=== PATIENT | male | born 1950 | race Caucasian/White ===

== ENCOUNTER 2018-01-05 02:17 | Inpatient (IN) ==
--- NOTE | 2018-01-05 03:27 | CT ---
EXAM DATE: 01/05/2018 2:53 AM EST AGE/SEX: 89 years / Male INDICATIONS: Altered mental status. CLINICAL DATA: This is the patient's initial encounter. Patient reports that signs and symptoms have been present for 1 day and indicates a pain score of Nonresponsive. MEDICAL/SURGICAL HISTORY: None. None. RADIATION DOSE: 56.35 CTDI (mGy) COMPARISON: No prior exams available for comparison. TECHNIQUE: CT of the head without contrast. Using automated exposure control and adjustment of the mA and/or kV according to patient size, radiation dose was kept as low as reasonably achievable to ob tain optimal diagnostic quality images. DICOM format image data is available electronically for revi ew and comparison. FINDINGS: Cerebrum: The ventricles are normal for age. No evidence of midline shift, mass lesion, hemorrhage or acute infarction. No extraaxial fluid collections are seen. Posterior Fossa: The cerebellum and brainstem are intact. The 4th ventricle is midline. The cerebe llopontine angle is unremarkable. Extracranial: The visualized portion of the orbits is intact. Skull: The calvaria is intact. No evidence of skull fracture. CONCLUSION: 1. No acute findings. Remote lacunar infarcts in the basal ganglia and right marian. . Electronically signed by: Tor Gorman MD 01/05/2018 3:25 AM EST
--- NOTE | 2018-01-05 03:28 | XR ---
EXAM DATE: 01/05/2018 3:04 AM EST AGE/SEX: 89 years / Male INDICATIONS: Shortness of breath CLINICAL DATA: This is the patient's initial encounter. Patient reports that signs and symptoms have been present for 1 day and indicates a pain score of Nonresponsive. MEDICAL/SURGICAL HISTORY: None. None. COMPARISON: No prior exams available for comparison. FINDINGS: Pacer leads in right atrium and right ventricle. Mildly tortuous aorta. No consolidation or. No pneum othorax. CONCLUSION: Pacer leads in right atrium and right ventricle. No acute findings. Electronically signed by: Tor Gorman MD 01/05/2018 3:26 AM EST
[2018-01-05 03:41] LABS: Baso # (Auto) 0.1 th/mm3 (0.0-0.2); Baso % (Auto) 1.1 % (0.0-2.0); Eos # (Auto) 0.1 th/mm3 (0.0-0.4); Hematocrit 42.8 % (39.0-51.0); Hemoglobin 14.6 gm/dL (13.0-17.0); Lymph # (Auto) 1.2 th/mm3 (1.0-4.8); Lymph % (Auto) 16.8 % (9.0-44.0); Mean Corpuscular Hemoglobin 32.2 pg (27.0-34.0); Mean Corpuscular Volume 94.5 fL (80.0-100.0); Mean Platelet Volume 8.4 fL (7.0-11.0); Mono # (Auto) 0.5 th/mm3 (0.0-0.9); Mono % (Auto) 7.5 % (0.0-8.0); Neut # (Auto) 5.4 th/mm3 (1.8-7.7); Neut % (Auto) 73.6 % (16.0-70.0); Platelet Count 207 th/mm3 (150-450); Red Blood Count 4.53 mil/mm3 (4.50-5.90); Red Cell Distribution Width 14.3 % (11.6-17.2); White Blood Count 7.3 th/mm3 (4.0-11.0)
[2018-01-05 03:49] LABS: Bilirubin,Urine Negative (Negative); Clarity,Urine Clear (Clear); Color,Urine Straw (Yellw/Straw); Glucose,Urine (UA) Negative (Negative); Leukocyte Esterase,Urine Negative (Negative); Mucus,Urine Few /lpf (Occasional); Nitrite,Urine Negative (Negative); Specific Gravity,Urine 1.005 (1.002-1.035); Squamous Epithelial Cell,Urine <1 /hpf (0-5)
[2018-01-05 03:52] LABS: Activated Partial Thrombo Time 24.3 sec (23.4-31.7); INR 1.1 Ratio
[2018-01-05 03:57] LABS: Alanine Aminotransferase 16 U/L (12-78); Albumin 3.6 g/dL (3.4-5.0); Anion Gap 9 meq/L (5-15); Aspartate Aminotransferase 15 U/L (15-37); Blood Urea Nitrogen 13 mg/dL (7-18); Calcium 9.1 mg/dL (8.5-10.1); Carbon Dioxide 28.5 meq/L (21.0-32.0); Chloride 104 meq/L (98-107); Glomerular Filtration Rate 86 mL/min (>89); Glucose,Random 104 mg/dL (74-106); Magnesium 2.1 mg/dL (1.5-2.5); Potassium 3.6 meq/L (3.5-5.1); Sodium 141 meq/L (136-145)
[2018-01-05 04:02] LABS: Alkaline Phosphatase 91 U/L (45-117); Creatine Kinase 102 U/L (39-308); Total Protein 6.9 g/dL (6.4-8.2)
--- NOTE | 2018-01-05 04:15 | ED ---
HPI General Chief complaint: Medical Clearance Stated complaint: mental status Time Seen by Provider: 01/05/18 02:28 Source: EMS Mode of arrival: EMS Limitations: altered mental status History of Present Illness HPI narrative: Patient is an older gentleman brought in by EMS due to altered mental status. Per EMS, patient was in a small apartment with several other adults. The other people in the apartment called 911 because he was not acting right. Per EMS, no one knew much about him. They said that he takes a lot of medications, but did not know what they were. Patient is a and may have just moved here from [place] per reports, however virtually nothing is known about this person. He mumbles, but does not say anything that is able to be understood. He is unable to provide any history. Related Data Home Medications Medication Instructions Recorded Confirmed Unable to Obtain Home Meds 01/05/18 01/05/18 Allergies Allergy/AdvReac Type Severity Reaction Status Date / Time No Allergy Information Allergy Unverified 01/05/18 02:46 Available Review of Systems ROS Unobtainable ROS Unobtainable: unobtainable due to mental status PMFSH Medical History Medical History Medical history unknown (Acute) Surgical history unknown (Acute) Social History Social History Substance History: Unable to Obtain Smoking Status: Unknown if ever smoked How Often Do You Have a Drink Containing Alcohol: Unable to Obtain Recent Travel in [facility] within the Last 8 Weeks: No Recent Out of Country Travel within the Last 8 Weeks: No Immunization History Tetanus Immunization: Unable to Assess Exam Narrative Exam Narrative: GENERAL: Awake and alert, appears to try to speak to you, however it is impossible to understand him. SKIN: Focused skin assessment warm/dry. HEAD: Atraumatic. Normocephalic. EYES: Pupils equal and round and reactive. No scleral icterus. Extraocular movements intact. ENT: Mucous membranes pink and moist. NECK: Trachea midline. No JVD. CARDIOVASCULAR: Regular rate and rhythm. No murmur appreciated. RESPIRATORY: No accessory muscle use. Clear to auscultation. Breath sounds equal bilaterally. GASTROINTESTINAL: Abdomen soft, non-tender, nondistended. MUSCULOSKELETAL: No obvious deformities. No clubbing. No cyanosis. No edema. NEUROLOGICAL: Awake and alert. No obvious cranial nerve deficits. Motor grossly within normal limits. Mumbled speech Course Initial Documented Vital Signs Temperature 97.6 F 01/05/18 02:36 Pulse Rate 71 01/05/18 02:36 Respiratory Rate 18 01/05/18 02:36 Blood Pressure 185/94 H 01/05/18 02:36 Pulse Oximetry 97 01/05/18 02:36 Last Documented Vital Signs Temperature 97.6 F 01/05/18 02:36 Pulse Rate 75 01/05/18 03:40 Respiratory Rate 16 01/05/18 03:40 Blood Pressure 157/80 H 01/05/18 03:40 Pulse Oximetry 97 01/05/18 02:42 Medical Decision Making MDM Narrative Medical decision making narrative: Patient is an elderly male brought in by EMS due to concerns for altered mental status. Patient is unable to provide any history and various little is known about this man. There is no focal weakness or focal abnormalities on exam, however patient does not speak clearly. IV established, labs sent. Labs show no acute abnormalities. CT head performed shows no acute abnormalities. It is unclear what this patient's baseline is or what his medical history is. It is assumed that he is currently altered and will require admission. Medical Screen Exam Complete: Yes Emergency Medical Condition: Yes Differential Diagnosis Differential Diagnosis: Electrolyte abnormality versus infection versus CVA versus dehydration versus dementia Lab Data Lab results reviewed: Yes I reviewed the patient's lab results. Result diagrams: 01/05/18 03:25 01/05/18 03:25 Lab Results 01/05/18 01/05/18 01/05/18 Range/Units 03:20 03:25 03:25 WBC 7.3 (4.0-11.0) th/mm3 RBC 4.53 (4.50-5.90) mil/mm3 Hgb 14.6 (13.0-17.0) gm/dL Hct 42.8 (39.0-51.0) % MCV 94.5 (80.0-100.0) fL MCH 32.2 (27.0-34.0) pg MCHC 34.0 (32.0-36.0) % RDW 14.3 (11.6-17.2) % Plt Count 207 (150-450) th/mm3 MPV 8.4 (7.0-11.0) fL Neut % (Auto) 73.6 H (16.0-70.0) % Lymph % (Auto) 16.8 (9.0-44.0) % Stephens % (Auto) 7.5 (0.0-8.0) % Eos % (Auto) 1.0 (0.0-4.0) % Baso % (Auto) 1.1 (0.0-2.0) % Neut # (Auto) 5.4 (1.8-7.7) th/mm3 Lymph # (Auto) 1.2 (1.0-4.8) th/mm3 Stephens # (Auto) 0.5 (0.0-0.9) th/mm3 Eos # (Auto) 0.1 (0.0-0.4) th/mm3 Baso # (Auto) 0.1 (0.0-0.2) th/mm3 WBC Differential . Differential Comment Auto diff final PT 11.0 (9.8-11.6) sec INR 1.1 Ratio APTT 24.3 (23.4-31.7) sec Sodium (136-145) meq/L Potassium (3.5-5.1) meq/L Chloride (98-107) meq/L Carbon Dioxide (21.0-32.0) meq/L Anion Gap (5-15) meq/L BUN (7-18) mg/dL Creatinine (0.60-1.30) mg/dL Estimated GFR (>89) mL/min Random Glucose (74-106) mg/dL Calcium (8.5-10.1) mg/dL Magnesium (1.5-2.5) mg/dL Total Bilirubin (0.2-1.0) mg/dL AST (15-37) U/L ALT (12-78) U/L Alkaline Phosphatase (45-117) U/L Ammonia (11-32) mcmol/L Total Creatine Kinase (39-308) U/L Troponin I (0.02-0.05) ng/mL Total Protein (6.4-8.2) g/dL Albumin (3.4-5.0) g/dL Urine Color Straw (Yellw/Straw) Urine Clarity Clear (Clear) Urine pH 6.0 (5.0-8.5) Ur Specific Witt 1.005 (1.002-1.035) Urine Protein Negative (Neg-Trace) mg/dL Urine Glucose (UA) Negative (Negative) mg/dL Urine Ketones Negative (Negative) mg/dL Urine Occult Blood Negative (Negative) Urine Nitrate Negative (Negative) Urine Bilirubin Negative (Negative) Urine Urobilinogen Less than 2 (Less than 2) mg/dL Ur Leukocyte Esterase Negative (Negative) Urine RBC Less than 1 (0-3) /hpf Urine WBC Less than 1 (0-5) /hpf Ur Squamous Epith Cells <1 (0-5) /hpf Urine Mucus Few H (Occasional) /lpf Micro UA Comment Cath-culture not ind Ur Microscopic Review Not Reportable Urine Culture Comments Cath-cult not ind 01/05/18 01/05/18 Range/Units 03:25 03:25 WBC (4.0-11.0) th/mm3 RBC (4.50-5.90) mil/mm3 Hgb (13.0-17.0) gm/dL Hct (39.0-51.0) % MCV (80.0-100.0) fL MCH (27.0-34.0) pg MCHC (32.0-36.0) % RDW (11.6-17.2) % Plt Count (150-450) th/mm3 MPV (7.0-11.0) fL Neut % (Auto) (16.0-70.0) % Lymph % (Auto) (9.0-44.0) % Stephens % (Auto) (0.0-8.0) % Eos % (Auto) (0.0-4.0) % Baso % (Auto) (0.0-2.0) % Neut # (Auto) (1.8-7.7) th/mm3 Lymph # (Auto) (1.0-4.8) th/mm3 Stephens # (Auto) (0.0-0.9) th/mm3 Eos # (Auto) (0.0-0.4) th/mm3 Baso # (Auto) (0.0-0.2) th/mm3 WBC Differential Differential Comment PT (9.8-11.6) sec INR Ratio APTT (23.4-31.7) sec Sodium 141 (136-145) meq/L Potassium 3.6 (3.5-5.1) meq/L Chloride 104 (98-107) meq/L Carbon Dioxide 28.5 (21.0-32.0) meq/L Anion Gap 9 (5-15) meq/L BUN 13 (7-18) mg/dL Creatinine 0.78 (0.60-1.30) mg/dL Estimated GFR 86 L (>89) mL/min Random Glucose 104 (74-106) mg/dL Calcium 9.1 (8.5-10.1) mg/dL Magnesium 2.1 (1.5-2.5) mg/dL Total Bilirubin 0.4 (0.2-1.0) mg/dL AST 15 (15-37) U/L ALT 16 (12-78) U/L Alkaline Phosphatase 91 (45-117) U/L Ammonia Less than 10 L (11-32) mcmol/L Total Creatine Kinase 102 (39-308) U/L Troponin I Less than 0.02 L (0.02-0.05) ng/mL Total Protein 6.9 (6.4-8.2) g/dL Albumin 3.6 (3.4-5.0) g/dL Urine Color (Yellw/Straw) Urine Clarity (Clear) Urine pH (5.0-8.5) Ur Specific Witt (1.002-1.035) Urine Protein (Neg-Trace) mg/dL Urine Glucose (UA) (Negative) mg/dL Urine Ketones (Negative) mg/dL Urine Occult Blood (Negative) Urine Nitrate (Negative) Urine Bilirubin (Negative) Urine Urobilinogen (Less than 2) mg/dL Ur Leukocyte Esterase (Negative) Urine RBC (0-3) /hpf Urine WBC (0-5) /hpf Ur Squamous Epith Cells (0-5) /hpf Urine Mucus (Occasional) /lpf Micro UA Comment Ur Microscopic Review Urine Culture Comments Imaging Data Radiologist's impression: Chest X-Ray 01/05/18 02:28 CONCLUSION: Pacer leads in right atrium and right ventricle. No acute findings. Head CT 01/05/18 02:28 CONCLUSION: 1. No acute findings. Remote lacunar infarcts in the basal ganglia and right marian. . Discharge Plan Discharge Disposition Patient Disposition: 30 Still Patient Discharge Condition Condition: Stable Discharge Details Diagnosis: Altered mental status Physicians Team ED Provider: Geovanna Awad Primary Care Provider: Primary Care Ivette Kevin Rxs /Orders / Referrals /Forms Prescriptions: No Action Unable to Obtain Home Meds RF: 0 Status ED Status: With Doctor
[2018-01-05] MEDS ORDERED: Acetaminophen 325 MG Tablet PO PRN (05:02)
[2018-01-05] MEDS ORDERED: Bisacodyl 10 MG Supp RECTAL PRN (05:02)
[2018-01-05 06:22] LABS: Amphetamine Screen,Urine Neg (Neg); Barbiturate Screen,Urine Neg (Neg); Cannabinoid Screen,Urine Neg (Neg); Cocaine Screen,Urine Neg (Neg)
[2018-01-05 06:24] LABS: Opiate Screen,Urine Neg (Neg)
[2018-01-05] MEDS: Senna/Docusate Sodium 8.6/50 MG Tablet PO SCH ×2 (10:28→20:38)
--- NOTE | 2018-01-05 11:32 | ECG ---
Date Performed: 01/05/2018 Time Performed: 04:24:19 PTAGE: 89 years EKG: Sinus rhythm NONSPECIFIC T-WAVE ABNORMALITY BORDERLINE ECG NO PREVIOUS TRACING DOCTOR: Ricky Lord Interpretating Date/Time 01/05/2018 11:29:07
[2018-01-05] MEDS ORDERED: Dextrose 50% in Water 50 ML Vial IV.PUSH PRN (12:23)
--- NOTE | 2018-01-05 12:23 | P.HPIM ---
History of Present Illness Primary Care Physician: No Primary Care Physician Chief Complaint: I am having a hard time expressing myself History of Present Illness: This is a 67-year-old white male who was initially brought in by EMS due to altered mental status and found in a small apartment with several other adults and register under a Joesph Carr. Apparently from the emergency room physicians dictation, the friends were worried about his changes in mental status. While he was in the emergency room apparently no history could be gathered from him and he was mumbling incoherent words. This morning, patient is more awake and alert and displays some expressive aphasia which he tells me has worsened over the past 4 weeks. He tells me that he usually ambulates with a walker and has no complaints of new headache, visual changes, nor any focalized weakness or numbness. He states that his brother in [place] wanted him to be placed in a fdc in which he refused and therefore moved down to [place] to live with his friends. He states that his confusion has been getting worse for the past 4 weeks as well with memory problems to the point where he is not taking any of his medications. The only past medical history he can remember is high blood pressure and previous history of stroke. He does not recall why he had a pacemaker done. At this time, he cannot tell me his brother's phone number or address. He is unable to tell me his current home address where he staying with his friends. He was able to tell the nurse this morning his name is Stevie Byrd with a birthdate of 1950. He is not able to tell me what medications he supposed to be taking. He reports he is allergic to previous medication but cannot remember the name of them. Inpatient Certification Inpatient Certification: I certify that the inpatient services were ordered in accordance with Medicare regulations governing the order. This includes certification that hospital inpatient services are reasonable and necessary and in the case of services not specified as inpatient-only under 42 CFR 419.22(n), that they are appropriately provided as inpatient services in accordance to with the 2-midnight benchmark under 43 CFR 412.3(e) Estimated Total Length of Stay (Days): 3 Plans for Post Hospital Care: Not yet determined Review of Systems Constitutional: Reports as per HPI and Denies headache(s) Eyes: Denies blurry vision, Denies change in vision and Denies eye pain Ears, Nose, Mouth, and Throat: Denies abnormal hearing, Denies headache(s), Denies mouth pain, Denies nasal congestion, Denies neck pain and Denies sore throat Cardiovascular: Denies chest pain, Denies pedal edema, Denies palpitations and Denies dyspnea Respiratory: Denies cough and Denies dyspnea Gastrointestinal: Denies abdominal pain, Denies constipation, Denies loose stools, Denies nausea and Denies vomiting Musculoskeletal: Denies back pain, Denies myalgias, Denies arthralgias, Denies neck pain and Denies numbness Skin/Breast: Denies new lesions and Denies rash Neurologic: Denies abnormal hearing, Reports abnormal speech (Difficulty expressing himself for the past 4 weeks), Reports abnormal gait (Uses a walker chronically), Reports confusion, Denies headache(s), Denies focal weakness, Reports memory loss, Denies numbness, Denies seizure-like activity and Denies tremor(s) Psychiatric: Denies anxiety, Denies depression and Denies memory loss Endocrine: Denies cold intolerance, Denies heat intolerance and Denies palpitations Hematologic/Lymphatic: Denies easy bleeding and Denies easy bruising PMFSH Medical History Medical History Medical history unknown (Acute) Surgical history unknown (Acute) CVA (cerebral vascular accident) (Chronic) Hypertension (Chronic) Surgical History Surgical History Pacemaker (Chronic) Family History Family History Mother Heart disease Father Heart disease Social History Social History Substance History: No History of Abuse Second Hand Smoke Exposure: No Smoking Status: Former smoker Tobacco Type: Cigarettes How Often Do You Have a Drink Containing Alcohol: Never Hx Recent Travel: Yes (moved from [place] down to [place]) Recent Travel in [facility] within the Last 8 Weeks: Yes Recent Out of Country Travel within the Last 8 Weeks: No Immunization History Tetanus Immunization: Unable to Assess Hx Influenza Vaccine This Season: Yes Medications and Allergies Allergies Allergy/AdvReac Type Severity Reaction Status Date / Time No Known Allergies Allergy Verified 01/05/18 05:46 Home Medications Medication Instructions Recorded Confirmed Type Unable to Obtain Home Meds 01/05/18 01/05/18 History Active Medications: Active Medications Acetaminophen (Tylenol) 650 mg PO Q4H PRN PRN Reason: Temp > 100.4 Al Hydroxide/Mg Hydroxide (Milk Of Magnesia Liq) 30 ml PO Q12H PRN PRN Reason: Mild Constipation Bisacodyl (Dulcolax Supp) 10 mg RECTAL DAILY PRN PRN Reason: SEVERE CONSITIPATION Lactulose (Lactulose Liq) 30 ml PO DAILY PRN PRN Reason: SEVERE CONSITIPATION Ondansetron HCl (Zofran Inj) 4 mg IV.PUSH Q6H PRN PRN Reason: NAUSEA OR VOMITING Senna/Docusate Sodium (Helen-Colace) 1 tab PO BID DIXIE Sennosides (Senokot) 17.2 mg PO Q12H PRN PRN Reason: Moderate Constipation Sodium Chloride (Ns Flush) 2 ml IV.FLUSH BID DIXIE Sodium Chloride (Ns Flush) 2 ml IV.FLUSH PRN PRN PRN Reason: FLUSH AFTER USING IV ACCESS Physical Exam Vital signs: Last Vital Signs Temp 97.9 F 01/05/18 11:43 Pulse 61 01/05/18 11:43 Resp 18 01/05/18 11:43 BP 147/81 H 01/05/18 11:43 Pulse Ox 98 01/05/18 11:43 Intake & Output 01/03/18 01/04/18 01/05/18 01/06/18 06:59 06:59 06:59 06:59 Weight 63.503 kg 63.5 kg Narrative: GENERAL: This is a thin white male in no acute distress lying in bed. SKIN: Warm and dry. Left chest wall with pacemaker indentation HEAD: Atraumatic. Normocephalic. EYES: Pupils equal and round. No scleral icterus. No injection or drainage. ENT: No nasal bleeding or discharge. Mucous membranes pink and moist. NECK: Trachea midline. No JVD. CARDIOVASCULAR: Regular rate and rhythm. RESPIRATORY: No accessory muscle use. Clear to auscultation. Breath sounds equal bilaterally. GASTROINTESTINAL: Abdomen soft, non-tender, nondistended. Hepatic and splenic margins not palpable. Normoactive bowel sounds MUSCULOSKELETAL: Extremities without clubbing, cyanosis, or edema. No obvious deformities. NEUROLOGICAL: Awake and alert to person, place, not to time or situation. No obvious cranial nerve deficits. Motor grossly within normal limits. Five out of 5 muscle strength in the arms and legs. Abnormal speech with signs of expressive aphasia. Memory is not intact, wide stance gait PSYCHIATRIC: Appropriate mood and affect; insight and judgment normal. Results Labs CBC & Chem 7: 01/05/18 03:25 01/05/18 03:25 Imaging Impressions Chest X-Ray 01/05/18 02:28 CONCLUSION: Pacer leads in right atrium and right ventricle. No acute findings. Head CT 01/05/18 02:28 CONCLUSION: 1. No acute findings. Remote lacunar infarcts in the basal ganglia and right marian. . ECG Prior ECG tracings: not available for review Interpretation: Normal sinus rhythm Caprini VTE Risk Assessment Caprini VTE Risk Assessment: Moderate/High Risk (score >= 2) Caprini Risk Assessment Model: Point Value = 1 Point Value = 2 Point Value = 3 Point Value = 5 Age 41-60 Minor surgery BMI > 25 kg/m2 Swollen legs Varicose veins or History of unexplained or recurrent spontaneous Oral contraceptives or hormone replacement Sepsis (< 1 month) Serious lung disease, including pneumonia (< 1 month) Abnormal pulmonary function Acute myocardial infarction Congestive heart failure (< 1 month) History of inflammatory bowel disease Medical patient at bed rest Age 61-74 Arthroscopic surgery Major open surgery (> 45 min) Laparoscopic surgery (> 45 min) Malignancy Confined to bed (> 72 hours) Immobilizing plaster cast Central venous access Age >= 75 History of VTE Family history of VTE Factor V Leiden Prothrombin [id number] Lupus anticoagulant Anticardiolipin antibodies Elevated serum homocysteine Heparin-induced thrombocytopenia Other congenital or acquired thrombophilia Stroke (< 1 month) Elective arthroplasty Hip, pelvis, or leg fracture Acute spinal cord injury (< 1 month) Prophylaxis Regimen: Total Risk Factor Score Risk Level Prophylaxis Regimen 0-1 Low Early ambulation 2 Moderate Order ONE of the following: *Sequential Compression Device (SCD) *Heparin 5000 units SQ BID 3-4 Higher Order ONE of the following medications: *Heparin 5000 units SQ TID *Enoxaparin/Lovenox 40 mg SQ daily (WT < 150 kg, CrCl > 30 mL/min) *Enoxaparin/Lovenox 30 mg SQ daily (WT < 150 kg, CrCl > 10-29 mL/min) *Enoxaparin/Lovenox 30 mg SQ BID (WT < 150 kg, CrCl > 30 mL/min) AND/OR *Sequential Compression Device (SCD) 5 or more Highest Order ONE of the following medications: *Heparin 5000 units SQ TID (Preferred with Epidurals) *Enoxaparin/Lovenox 40 mg SQ daily (WT < 150 kg, CrCl > 30 mL/min) *Enoxaparin/Lovenox 30 mg SQ daily (WT < 150 kg, CrCl > 10-29 mL/min) *Enoxaparin/Lovenox 30 mg SQ BID (WT < 150 kg, CrCl > 30 mL/min) AND *Sequential Compression Device (SCD) Assessment and Plan Plan 67-year-old white male with a previous history of hypertension and CVA brought in by EMS due to altered mental status 1. Acute encephalopathy of questionable etiology? TIA versus subacute CVA with associated expressive aphasia- CT head shows no acute findings with remote lacunar infarcts in the basal ganglia and right marian We will obtain neurology consultation for further evaluation and workup. Unknown if we are able to get an MRI for further evaluation due to history of a pacemaker. Start aspirin, check 2D echo and carotid ultrasound Speech therapy consult for expressive aphasia PT OT consult Check hemoglobin A1c and fasting lipid profile Ammonia level and urine tox screen were within normal limits Continue neurochecks every 4 2. Hypertension, chronic essential -initiate Norvasc. 3. DVT prophylaxisLovenox H&P: Quality VTE Deep Vein Thrombosis/Pulmonary Embolism Present on Admission: No
[2018-01-05] MEDS ORDERED: amLODIPine 5 MG Tablet PO SCH (12:30)
[2018-01-05] MEDS: Enoxaparin Inj 40 MG/0.4 ML Syringe SQ SCH (13:20)
--- NOTE | 2018-01-05 14:24 | US ---
EXAM DATE: 01/05/2018 2:20 PM EST AGE/SEX: 89 years / Male INDICATIONS: Altered mental status. CLINICAL DATA: This is the patient's initial encounter. Patient reports that signs and symptoms have been present for 1 day and indicates a pain score of 0/10. MEDICAL/SURGICAL HISTORY: Hypertension. CVA. Pacemaker. . Surgical history unknown. COMPARISON: No prior exams available for comparison. VELOCITY PARAMETERS: ICA/CCA Ratio: Right N/A , Left 1.49 ICA: Right NO FLOW cm/sec, Left 97 cm/sec CCA: Right 60 cm/sec, Left 65 cm/sec ECA: Right 92 cm/sec, Left 55 cm/sec Vertebral: Right NO FLOW cm/sec absent, Left 55 cm/sec antegrade FINDINGS: Right Carotid: No flow is identified within the right internal carotid circulation. Left Carotid: Mild arteriosclerotic plaque is visualized. The waveforms are within normal limits. Other: None. CONCLUSION: 1. Right Internal Carotid Artery: No flow identified. The right internal carotid appears completely occluded. 2. Left Internal Carotid Artery: Moderate atherosclerotic plaquing. Exam would suggest mild stenosis (less than 50%) by NASCET criteria 3. No flow identified within the right vertebral. Electronically signed by: Pillo Pereyra MD 01/05/2018 2:23 PM EST
[2018-01-05] MEDS: Insulin NovoLOG Aspart Correctional Sugar Inj SQ SCH ×2 (17:59→20:38)
--- NOTE | 2018-01-05 22:37 | MB ---
cc: Ricky Rios MD DATE: 01/05/2018 HISTORY OF PRESENT ILLNESS: He is a 66-year-old man, right-handed, with hypertension, hypercholesterolemia. He tells me he has had a myocardial infarction. He has a pacemaker. He says he has had liver problems, hepatitis in the past. He does drink beer apparently every day and is a smoker. He was evidently up in [place] and his brother want to put him in a residential. He had some friends who were driving down to [place], so he drove down here with them about a month ago and has been staying with some friends. Apparently he does not remember how he got to the hospital. He was evidently at a small apartment with several other adults. He was not acting right, so they called 911. Nobody knew much about him. Says he takes a lot of medications, but they did not know what they were. He is a . He was not saying anything that could be understood. He was awake and alert in the ER with mumbling speech. CAT scan of the brain showed an old right pontine and old right periventricular infarct. Some atrophy and white matter changes were noted. REVIEW OF SYSTEMS: He denies any diabetes, a fib, Coumadin, CABG, renal or pulmonary disease, thyroid disease, lupus, ulcer, cancer, seizure, stroke. SOCIAL HISTORY: He is a smoker and a drinker, lives in that apartment, previously up in [place]. FAMILY HISTORY: Negative for cancer, seizure or stroke, according to the patient. MEDICATIONS: Unable to obtain. He is now on: 1. Amlodipine. 2. Aspirin 81. 3. Lipitor. 4. Enalapril. 5. Lovenox 40 a day. 6. Zofran. PHYSICAL EXAMINATION: VITAL SIGNS: Afebrile, heart rate 67, respirations 19, blood pressure 114/71; 185/94 when he first came in. There were no carotid bruits. HEART: Regular rate and rhythm. No rub or murmur. He has a pacemaker. NEUROLOGIC: Pupils are equal. Visual gonzales are full. Extraocular movements intact without nystagmus. Face is symmetric with normal sensation. Tongue midline. No drift. Normal strength in upper and lower extremities bilaterally. DTRs are hyperreflexive on the left knee jerk compared to the right. Toes downgoing bilaterally. Pinprick is intact throughout. He is not ataxic on [id number]. Gait: He tends to walk and shuffle, take small steps and hold his arms out, posturing his arms out sideways, both of them. LABORATORY DATA: CBC is normal. Urine drug screen negative. Alcohol level negative. UA negative. Basic metabolic profile, ammonia, troponin, CPK, albumin all normal. Coags were normal. CAT scan of the brain is noted. Carotid ultrasound: Right internal carotid artery is completely occluded. Mild stenosis on the left, less than 50%. 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 Old right pontine small infarct. I would recommend keeping him on the aspirin. We will check his LDL cholesterol, B12, thyroid, some other blood work. He appears to have some dementia. He does know the month of the year, but when I told him the month and year, he remembered the month, but not the year. He has also had some shuffling gait. We will try him on a little bit of Sinemet. I may put him on some memory medicines in the future. This is likely going to be a social case about placement. We will also check an echocardiogram on him, with a history of stroke, and an EEG. I note his EKG was sinus rhythm. Will also check a standing blood pressure. MD ALFRED Batista/julia , 09:35 PM , 09:44 PM
--- NOTE | 2018-01-06 06:31 | P.PNNEU ---
Subjective Subjective Comments: did not sleep well with nausea after sinemet Active Medications: Active Medications Acetaminophen (Tylenol) 650 mg PO Q4H PRN PRN Reason: Temp > 100.4 Al Hydroxide/Mg Hydroxide (Milk Of Magnesia Liq) 30 ml PO Q12H PRN PRN Reason: Mild Constipation Amlodipine Besylate (Norvasc) 5 mg PO DAILY [facility] Last Admin: 01/05/18 13:20 Dose: 5 mg Aspirin (Aspirin Chew) 81 mg PO DAILY [facility] Last Admin: 01/05/18 13:20 Dose: 81 mg Atorvastatin Calcium (Lipitor) 10 mg PO HS [facility] Last Admin: 01/05/18 20:38 Dose: 10 mg Bisacodyl (Dulcolax Supp) 10 mg RECTAL DAILY PRN PRN Reason: SEVERE CONSITIPATION Dextrose (D50w Vial) 50 ml IV.PUSH UNSCH PRN PRN Reason: PER HYPOGLYCEMIA PROTOCOL Enalaprilat (Vasotec Inj) 1.25 mg IV.PUSH Q4H PRN PRN Reason: For SBP > 220 or DBP > 120 Enoxaparin Sodium (Lovenox Inj) 40 mg SQ Q24H [facility] Last Admin: 01/05/18 13:20 Dose: 40 mg Glucagon (Glucagon Inj) 1 mg OTHER UNSCH PRN PRN Reason: for Hypoglycemia Protocol Insulin Aspart (Novolog Insulin Correctional Sugar Inj) 0 unit SQ [facility]; Protocol Last Admin: 01/05/18 20:38 Dose: Not Given Lactulose (Lactulose Liq) 30 ml PO DAILY PRN PRN Reason: SEVERE CONSITIPATION Memantine (Namenda) 5 mg PO DAILY [facility] Ondansetron HCl (Zofran Inj) 4 mg IV.PUSH Q6H PRN PRN Reason: NAUSEA OR VOMITING Senna/Docusate Sodium (Helen-Colace) 1 tab PO BID [facility] Last Admin: 01/05/18 20:38 Dose: 1 tab Sennosides (Senokot) 17.2 mg PO Q12H PRN PRN Reason: Moderate Constipation Sodium Chloride (Ns Flush) 2 ml IV.FLUSH BID [facility] Last Admin: 01/05/18 22:29 Dose: 2 ml Sodium Chloride (Ns Flush) 2 ml IV.FLUSH PRN PRN PRN Reason: FLUSH AFTER USING IV ACCESS Allergies/Adverse Reactions: Allergies Allergy/AdvReac Type Severity Reaction Status Date / Time No Known Allergies Allergy Verified 01/05/18 05:46 Physical Exam Vital signs: Vital Signs 01/05/18 08:00 01/05/18 11:43 01/05/18 15:56 Temperature 98.3 F 97.9 F 98.3 F Pulse Rate 63 61 59 L Respiratory Rate 17 18 18 Blood Pressure 131/68 147/81 H 137/75 Pulse Oximetry 95 98 97 01/05/18 20:00 01/05/18 20:29 01/06/18 00:00 Temperature 98.3 F Pulse Rate 78 75 Respiratory Rate 19 Blood Pressure 114/71 Pulse Oximetry 97 95 01/06/18 00:15 01/06/18 03:45 01/06/18 04:00 Temperature 97.5 F L 98.0 F Pulse Rate 81 76 78 Respiratory Rate 18 18 Blood Pressure 120/73 150/81 H Pulse Oximetry 95 97 Intake & Output 01/05/18 01/05/18 01/06/18 06:59 18:59 06:59 Intake Total 480 / 480 520 / 520 Balance 480 / 480 520 / 520 Weight 63.503 kg 63.5 kg 63.5 kg Intake: Oral 480 / 480 520 / 520 Other: # Voids 2 2 Weight On Admission 63.5 kg Narrative: awake alert moves all well mo not yr knows [facility] Objective Laboratory Results - last 24 hr 01/05/18 01/05/18 01/05/18 03:25 17:06 21:59 POC Glucose 99 106 Triglycerides Cholesterol IgA 163 01/06/18 05:26 POC Glucose Triglycerides 94 Cholesterol 167 IgA Review/Management - Review/Management Plan: imp likely old r ica occlusion asa fu echo tele labs he was orthostatic last pm to 85/ standing and follow his standing bp overweekend may need to be rx med team i will fu tuesday if still here
[2018-01-06 06:52] LABS: Chol/HDL Ratio 2.42 Ratio; Free T4 (Free Thyroxine) 0.98 ng/dL (0.76-1.46); Thyroid Stimulating Hormone 0.675 uIU/mL (0.358-3.740)
--- NOTE | 2018-01-06 10:25 | P.PN ---
Subjective Interval history: Follow-up visit on 67-year-old male with altered mental status. Patient is seen and examined sitting up in bed eating best crackers this morning and appears to be in no acute distress. He is alert and oriented to self states that his name is Stevie. States that he was brought to the hospital but does not know the reason why. He is oriented to location but believes it is 1964 and the current president is Evans. He denies any headache, dizziness, lightheadedness, cough, chest pain, nausea, vomiting or diarrhea or dysuria. Physical Exam Vital signs: Vital Signs 01/05/18 11:43 01/05/18 15:56 01/05/18 20:00 Temperature 97.9 F 98.3 F 98.3 F Pulse Rate 61 59 L 78 Respiratory Rate 18 18 19 Blood Pressure 147/81 H 137/75 114/71 Pulse Oximetry 98 97 97 01/05/18 20:29 01/06/18 00:00 01/06/18 00:15 Temperature 97.5 F L Pulse Rate 75 81 Respiratory Rate 18 Blood Pressure 120/73 Pulse Oximetry 95 95 01/06/18 03:45 01/06/18 04:00 01/06/18 08:00 Temperature 98.0 F 99.6 F Pulse Rate 76 78 86 Respiratory Rate 18 16 Blood Pressure 150/81 H 127/74 Pulse Oximetry 97 96 01/06/18 10:11 Temperature Pulse Rate Respiratory Rate Blood Pressure Pulse Oximetry 96 Intake & Output 01/05/18 01/06/18 01/06/18 18:59 06:59 18:59 Intake Total 480 / 480 520 / 520 Balance 480 / 480 520 / 520 Weight 63.5 kg 63.5 kg Intake: Oral 480 / 480 520 / 520 Other: # Voids 2 2 Weight On Admission 63.5 kg Narrative: GENERAL: male who appears older than stated age in no acute distress. SKIN: Warm and dry. HEAD: Atraumatic. Normocephalic. EYES: Pupils equal and round. No scleral icterus. No injection or drainage. ENT: No nasal bleeding or discharge. Mucous membranes pink and moist. NECK: Trachea midline. CARDIOVASCULAR: Regular rate and rhythm. RESPIRATORY: No accessory muscle use. Clear to auscultation. Breath sounds equal bilaterally. GASTROINTESTINAL: Abdomen soft, non-tender, nondistended. + Bowel sounds MUSCULOSKELETAL: Extremities without clubbing, cyanosis, or edema. No obvious deformities. NEUROLOGICAL: Awake, alert, oriented to self and place. No obvious cranial nerve deficits. Motor grossly within normal limits. RUE 5/5, LUE 4/5, bilateral lower extremities 5/5. Expressive aphasia, speech is clear, no facial droop. PSYCHIATRIC: poor insight and judgment normal. Results - Labs CBC & Chem 7: 01/05/18 03:25 01/05/18 03:25 Laboratory Results - last 24 hr 01/05/18 01/05/18 01/05/18 03:25 17:06 21:59 POC Glucose 99 106 Triglycerides Cholesterol LDL Cholesterol, Calc HDL Cholesterol Cholesterol/HDL Ratio Vitamin B12 TSH Free T4 IgA 163 01/06/18 01/06/18 05:26 07:16 POC Glucose 137 H Triglycerides 94 Cholesterol 167 LDL Cholesterol, Calc 79 HDL Cholesterol 69.0 H Cholesterol/HDL Ratio 2.42 Vitamin B12 332 TSH 0.675 Free T4 0.98 IgA - Imaging Impressions Carotid Doppler Study 01/05/18 00:00 CONCLUSION: 1. Right Internal Carotid Artery: No flow identified. The right internal carotid appears completely occluded. 2. Left Internal Carotid Artery: Moderate atherosclerotic plaquing. Exam would suggest mild stenosis (less than 50%) by NASCET criteria 3. No flow identified within the right vertebral. Assessment and Plan - Plan 67-year-old white male with a previous history of hypertension and CVA brought in by EMS due to altered mental status Acute encephalopathy of unknown etiology TIA versus subacute CVA with associated expressive aphasia -CT head shows no acute findings with remote lacunar infarcts in the basal ganglia and right marian. - Unable to do MRI, as it is unknown if patient has compatible PPM, MRI safe data bases checked with provided name and and is was not found. -Neurology following, appreciate assistance. Possible onset of dementia, stated on low dose Unknown if we are able to get an MRI for further evaluation due to history of a pacemaker. -2D echo with EF 50-55%, trace to mild MVR, aortic valve sclerosis. - Carotid US with no flow in right internal carotid artery appearing occluded. The left with mild stenosis <50% and moderate arthrosclerosis. - Check neck CTA and head CTA - Consult vascular surgery for further recommendations given symptoms and occlusion, appreciate assistance. - Continue aspirin, statin, BP control - Speech therapy consult for expressive aphasia - PT OT following - Hemoglobin A1c 5.0 discontinue Accu-Cheks and insulin sliding scale. - Ammonia level and urine tox screen were within normal limits -Continue neurochecks every 4 Hypertension, chronic essential +orthostatic BP's - Reduce canchola to 2.5mg dialy DVT prophylaxisLovenox Discussed Condition With: Patient, RN and Dr. Cedeno
[2018-01-06] MEDS: Senna/Docusate Sodium 8.6/50 MG Tablet PO SCH ×2 (10:28→21:27)
[2018-01-06] MEDS: Insulin NovoLOG Aspart Correctional Sugar Inj SQ SCH ×2 (10:29→12:26)
[2018-01-06] MEDS: Enoxaparin Inj 40 MG/0.4 ML Syringe SQ SCH (12:26)
--- NOTE | 2018-01-06 13:42 | ECHRPT ---
Indication: cva/tia CONCLUSIONS Normal left ventricular size. Wall thickness is normal. The left ventricular systolic function is low normal with an estimated ejection fraction in the rang e of 50- 55%. Tppkh-rs-ylar mitral valve regurgitation. Aortic valve sclerosis is present. The estimated pulmonary arterial pressure is 31 mmHg. BP: / HR: Rhythm: MEASUREMENTS (Male / Female) Normal Values Technical Quality:Very technically difficult study 2D ECHO LV Systolic Diameter PLAX 3.1 cm IVS Diastolic Thickness 0.9 cm 0.6 - 1.0 / 0.6 - 0.9 cm LVPW Diastolic Thickness 0.8 cm 0.6 - 1.0 / 0.6 - 0.9 cm RV Internal Dim ED PLAX 4.5 cm LVOT Diameter 1.9 cm Aortic Root Diameter 2.4 cm LA Systolic Diameter LX 2.2 cm 3.0 - 4.0 / 2.7 - 3.8 cm LV Ejection Fraction MOD 4C 30.3 % LV Ejection Fraction 4C AL 29.8 % M-MODE Aortic Root Diameter MM 3.3 cm LA Systolic Diameter MM 0.7 cm LA Ao Ratio MM 0.2 AV Cusp Separation MM 0.7 cm DOPPLER AV Peak Velocity 117.0 cm/s AV Peak Gradient 5.5 mmHg LVOT Peak Velocity 66.1 cm/s LVOT Peak Gradient 1.7 mmHg AV Area Cont Eq pk 1.6 cm Mitral E Point Velocity 53.3 cm/s Mitral A Point Velocity 53.8 cm/s Mitral E to A Ratio 1.0 LV E' Lateral Velocity 4.2 cm/s Mitral E to LV E' Lateral Ratio 12.7 LV E' Septal Velocity 6.1 cm/s Mitral E to LV E' Septal Ratio 8.7 TR Peak Velocity 229.0 cm/s TR Peak Gradient 21.0 mmHg Right Atrial Pressure 10.0 mmHg Pulmonary Artery Systolic Pressu 31.0 mmHg Right Ventricular Systolic Press 31.0 mmHg PV Peak Velocity 128.0 cm/s PV Peak Gradient 6.6 mmHg FINDINGS LEFT VENTRICLE Normal left ventricular size. Wall thickness is normal. The left ventricular systolic function is low normal with an estimated ejection fraction in the rang e of 50- 55%. RIGHT VENTRICLE Normal right ventricular size and systolic function. LEFT ATRIUM The left atrial size is normal. RIGHT ATRIUM The right atrial size is normal. ATRIAL SEPTUM Normal atrial septal thickness without atrial level shunting by limited color doppler interrogation. AORTA The aortic root and proximal ascending aorta are normal in size on limited imaging. MITRAL VALVE Ogemg-um-fkyr mitral valve regurgitation. AORTIC VALVE Aortic valve sclerosis is present. TRICUSPID VALVE The estimated pulmonary arterial pressure is 31 mmHg. PULMONARY VALVE No pulmonary valve regurgitation or stenosis. VESSELS The inferior vena cava is normal in size. PERICARDIUM No pericardial effusion. Jackson Sandhu MD, FACC, [facility] [place] (Electronically Signed) Final Date:06 January 2018 13:42
[2018-01-06 14:33] LABS: Anti-Nuclear Antibody Screen Neg (Neg)
--- NOTE | 2018-01-06 18:10 | MG ---
cc: Stephanie Mercado MD EEG NUMBER: [id number] REFERRING PHYSICIAN: Ricky Rios MD ROOM: 1605 With photic done, CT shows raccoons old basal ganglia and right marian. Here for a mental status change. History of stroke, pacemaker, liver problems. On aspirin, Lipitor, Lovenox, Norvasc. DESCRIPTION OF RECORD: Noted by the water supply technician, the patient is awake. There is some slowing of the background predominantly of 4-5 Hz. Quite a bit of artifact in the eye gonzales, but otherwise slowing is seen throughout. Ongoing muscle artifact throughout as well. No appreciable epileptiform features. Hyperventilation was not done. Photic stimulation without a significant driving response. IMPRESSION: Slowing of background consistent with mild to moderate encephalopathy without any epileptiform features. Stephanie Mercado MD DF/julia , 05:29 PM , 05:34 PM
[2018-01-06] MEDS: Sod Chloride 0.9% Inj 1,000 ML IV.CONT SCH (18:40)
[2018-01-07] MEDS: Sod Chloride 0.9% Inj 1,000 ML IV.CONT SCH ×3 (01:20→23:00)
[2018-01-07] MEDS: amLODIPine 5 MG Tablet PO SCH (09:09)
[2018-01-07] MEDS: Senna/Docusate Sodium 8.6/50 MG Tablet PO SCH ×2 (09:09→20:43)
[2018-01-07] MEDS: Enoxaparin Inj 40 MG/0.4 ML Syringe SQ SCH (14:04)
--- NOTE | 2018-01-07 14:56 | P.PN ---
Subjective Interval history: Follow-up visit for altered mental status, possibly CVA. Patient is seen and examined resting in bed comfortably in no acute distress with nurse at bedside. He reports that he had nausea and vomiting early this morning prior to eating breakfast. He is requesting something to eat as he is hungry. Denies any further nausea or vomiting. He denies any dizziness, lightheadedness, cough, shortness of breath or chest pain. He also reports he has been emotional for the past month and will cry for no reason. Nurse reports patient continues to have somewhat unsteady gait to ambulate. Physical Exam Vital signs: Vital Signs 01/06/18 16:00 01/06/18 17:18 01/06/18 20:00 Temperature 98.5 F 98.0 F Pulse Rate 75 74 Respiratory Rate 18 17 Blood Pressure 130/65 150/79 H Pulse Oximetry 97 97 98 01/07/18 00:00 01/07/18 04:00 01/07/18 08:00 Temperature 97.7 F 97.9 F 98.3 F Pulse Rate 74 65 69 Respiratory Rate 17 16 17 Blood Pressure 138/73 124/68 117/63 Pulse Oximetry 95 96 96 01/07/18 12:00 Temperature 98.6 F Pulse Rate 80 Respiratory Rate 18 Blood Pressure 125/71 Pulse Oximetry 95 Intake & Output 01/06/18 01/07/18 01/07/18 18:59 06:59 18:59 Weight 63.7 kg Other: # Voids 3 Date of Last Bowel Movement 01/06/18 01/06/18 01/07/18 # Bowel Movements 1 # Incontinent Bowel Movements 1 Narrative: GENERAL: male who appears older than stated age in no acute distress. SKIN: Warm and dry. HEAD: Atraumatic. Normocephalic. EYES: Pupils equal and round. No scleral icterus. No injection or drainage. ENT: No nasal bleeding or discharge. Mucous membranes pink and moist. NECK: Trachea midline. CARDIOVASCULAR: Regular rate and rhythm. RESPIRATORY: No accessory muscle use. Clear to auscultation. Breath sounds equal bilaterally. GASTROINTESTINAL: Abdomen soft, non-tender, nondistended. + Bowel sounds MUSCULOSKELETAL: Extremities without clubbing, cyanosis, or edema. No obvious deformities. NEUROLOGICAL: Awake, alert, oriented to self and place. No obvious cranial nerve deficits. Motor grossly within normal limits. RUE 5/5, LUE 4/5, bilateral lower extremities 5/5. Mild expressive aphagia, speech is clear, no facial droop. PSYCHIATRIC: poor insight and judgment, tearful at one point. Results - Labs CBC & Chem 7: 01/05/18 03:25 01/05/18 03:25 Assessment and Plan - Plan 67-year-old white male with a previous history of hypertension and CVA brought in by EMS due to altered mental status Acute encephalopathy of unknown etiology TIA versus subacute CVA with associated expressive aphasia -CT head shows no acute findings with remote lacunar infarcts in the basal ganglia and right marian. - Unable to do MRI, as it is unknown if patient has compatible PPM, MRI safe data bases checked with provided name and and is was not found. -Neurology following, appreciate assistance. Possible onset of dementia, stated on low dose Namenda. Unable to do MRI for further evaluation. -2D echo with EF 50-55%, trace to mild MVR, aortic valve sclerosis. - Carotid US with no flow in right internal carotid artery appearing occluded. The left with mild stenosis <50% and moderate arthrosclerosis. - Check neck CTA and head CTA - Consult vascular surgery for further recommendations given symptoms and occlusion, appreciate assistance. - Continue aspirin, statin, BP control - Speech therapy consult for expressive aphasia - PT OT following, unsteady gait 7 days per week PT to help with gait - Hemoglobin A1c 5.0 discontinue Accu-Cheks and insulin sliding scale. - Ammonia level and urine tox screen were within normal limits -Continue neurochecks every 4 Hypertension, chronic essential +orthostatic BP's -Continue Norvasc 2.5mg daily, BP stable, no drop in BP with standing. DVT prophylaxisLovenox Discussed Condition With: Patient and shoe worker Planning: Likely a safe discharge problem, PT daily.
--- NOTE | 2018-01-07 22:14 | P.PNVS ---
Subjective Subjective/Hospital Course: Referral received Full consult to follow CTA carotids pending Thanks J Objective Vital Signs / I&O: Vital Signs 01/07/18 00:00 01/07/18 04:00 01/07/18 08:00 Temperature 97.7 F 97.9 F 98.3 F Pulse Rate 74 65 69 Respiratory Rate 17 16 17 Blood Pressure 138/73 124/68 117/63 Pulse Oximetry 95 96 96 01/07/18 12:00 01/07/18 16:00 01/07/18 16:19 Temperature 98.6 F 98.1 F Pulse Rate 80 67 Respiratory Rate 18 18 Blood Pressure 125/71 130/66 Pulse Oximetry 95 98 97 01/07/18 18:20 01/07/18 20:00 Temperature 98.1 F Pulse Rate 71 80 Respiratory Rate 17 Blood Pressure 146/85 H Pulse Oximetry 97 Intake & Output 01/07/18 01/07/18 01/08/18 06:59 18:59 06:59 Intake Total 2500 / 2500 Balance 2500 / 2500 Weight 63.7 kg Intake: Oral 2500 / 2500 Other: # Voids 3 5 Date of Last Bowel Movement 01/06/18 01/07/18 01/07/18 # Bowel Movements 1 # Incontinent Bowel Movements 1
[2018-01-08 01:43] LABS: Anion Gap 7 meq/L (5-15); Blood Urea Nitrogen 18 mg/dL (7-18); Calcium 8.6 mg/dL (8.5-10.1); Carbon Dioxide 29.1 meq/L (21.0-32.0); Chloride 106 meq/L (98-107); Glomerular Filtration Rate 83 mL/min (>89); Glucose,Random 80 mg/dL (74-106); Magnesium 1.9 mg/dL (1.5-2.5); Potassium 3.8 meq/L (3.5-5.1); Sodium 142 meq/L (136-145)
[2018-01-08] MEDS: amLODIPine 5 MG Tablet PO SCH (09:02)
[2018-01-08] MEDS: Sod Chloride 0.9% Inj 1,000 ML IV.CONT SCH ×2 (09:02→18:48)
[2018-01-08] MEDS: Senna/Docusate Sodium 8.6/50 MG Tablet PO SCH ×2 (09:03→21:06)
--- NOTE | 2018-01-08 10:08 | CT ---
EXAM DATE: 01/08/2018 10:02 AM EST AGE/SEX: 89 years / Male INDICATIONS: Altered Mental Status CLINICAL DATA: This is the patient's subsequent encounter. Patient reports that signs and symptoms h ave been present for 3 days and indicates a pain score of 0/10. MEDICAL/SURGICAL HISTORY: Hypertension. None. RADIATION DOSE: 34.49 CTDI (mGy) COMPARISON: [facility] [place], CT HEAD W/O CONTRAST, 01/05/2018. . TECHNIQUE: CT of the head without contrast. Using automated exposure control and adjustment of the mA and/or kV according to patient size, radiation dose was kept as low as reasonably achievable to ob tain optimal diagnostic quality images. DICOM format image data is available electronically for revi ew and comparison. FINDINGS: Cerebrum: The ventricles are normal for age. Stable bilateral cortical atrophy. Stable old lacunar i nfarct in the right basal ganglia. There are tiny stable bilateral lacunar infarcts in the thalamic a reas bilaterally. Stable chronic bilateral white matter changes. No evidence of midline shift, mass lesion, hemorrhage or acute infarction. No extraaxial fluid collections are seen. Posterior Fossa: The cerebellum and brainstem are intact. Stable old tiny infarct in the right midbr ain. The 4th ventricle is midline. The cerebellopontine angle is unremarkable. Extracranial: The visualized portion of the orbits is intact. Skull: The calvaria is intact. No evidence of skull fracture. CONCLUSION: 1. No focal or acute intracranial hemorrhage. 2. Stable CT scan of the brain compared to the prior study. Specifically, no change in the bilateral cortical atrophy, chronic white matter changes and bilateral lacunar infarcts. . Electronically signed by: Shahzad Huertas MD 01/08/2018 10:07 AM EST
--- NOTE | 2018-01-08 10:23 | CT ---
EXAM DATE: 01/08/2018 10:10 AM EST AGE/SEX: 89 years / Male INDICATIONS: Atherosclerosis CLINICAL DATA: This is the patient's initial encounter. Patient reports that signs and symptoms have been present for 1 day and indicates a pain score of 0/10. MEDICAL/SURGICAL HISTORY: Hypertension. None. RADIATION DOSE: 27.48 CTDI (mGy) COMPARISON: [facility] – [place], [place] CAROTID DOPPLER BI, 01/05/2018. . TECHNIQUE: Volumetric scanning was performed using a multirow detector CT scanner during bolus infus ion of 85ML ml Omnipaque 350 (iohexol) nonionic water-soluble contrast as a single exam dose. The data was postprocessed with a variety of visualization algorithms including full-volume maximum inten sity projection, multiplanar sliding thin-slab reformation, curved-planar reformation, and surface-re ndering techniques. Using automated exposure control and adjustment of the mA and/or kV according to patient size, radiation dose was kept as low as reasonably achievable to obtain optimal diagnostic q uality images. DICOM format image data is available electronically for review and comparison. FINDINGS: Aortic Arch: There is a three-vessel origin of the great vessels from the aorta. No evidence of ost ial narrowing Right Carotid: In the proximal portion of the right common carotid artery at the base of the neck th ere is a focal noncalcified eccentric plaque versus thrombus measuring 1.2 cm in length causing some focal high-grade stenosis. The mid section of the right common carotid artery is patent. There is den se calcified plaquing at the carotid bifurcation. There is complete occlusion of the right internal c arotid artery. The right external carotid artery is patent. Left Carotid: The common carotid artery is intact. . There is calcified plaque at the origin of the left internal carotid artery. This is causing some mild narrowing on the order of about 30%. The rest of the left internal carotid artery is patent throughout its extent. The external carotid artery is patent. Vertebrals: No flow is demonstrated in the right vertebral artery. The left vertebral artery is hollis nt. There is a focal calcified plaque at its origin causing some focal mild to moderate stenosis. These findings correlate with the recent ultrasound. Percent stenosis is calculated using the diameter of the stenotic region over the diameter of the nor mal distal internal carotid artery. CONCLUSION: 1. 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 2. In the proximal portion of the right common carotid artery at the base of the neck there appears to be a focal noncalcified eccentric plaque versus thrombus measuring 1.2 cm in length causing some f ocal high-grade stenosis. 3. Moderate calcified plaquing along the proximal segment of the left internal carotid artery causin g some mild narrowing of approximately 30%. 4. The right vertebral artery appears to be occluded. 5. The left vertebral artery is patent with a focal calcified plaque at its origin causing some mild to moderate stenosis. Electronically signed by: Shahzad Huertas MD 01/08/2018 10:22 AM EST
--- NOTE | 2018-01-08 11:23 | P.PN ---
Subjective Interval history: Follow-up visit on 67-year-old male with altered mental status. Patient seen and examined resting in bed in no acute distress. He denies any fevers, chills , states he was unable to get much sleep overnight. Denies any shortness of breath, cough or chest pain. Nurse reports episode of nonsustained V. tach overnight, asymptomatic. Physical Exam Vital signs: Vital Signs 01/07/18 12:00 01/07/18 16:00 01/07/18 16:19 Temperature 98.6 F 98.1 F Pulse Rate 80 67 Respiratory Rate 18 18 Blood Pressure 125/71 130/66 Pulse Oximetry 95 98 97 01/07/18 18:20 01/07/18 20:00 01/08/18 00:00 Temperature 98.1 F 97.8 F Pulse Rate 71 82 84 Respiratory Rate 17 17 Blood Pressure 146/85 H 145/71 H Pulse Oximetry 97 98 01/08/18 04:00 01/08/18 04:09 01/08/18 08:00 Temperature 98.4 F 99.2 F Pulse Rate 77 85 88 Respiratory Rate 16 18 Blood Pressure 132/71 174/82 H Pulse Oximetry 98 96 Intake & Output 01/07/18 01/08/18 01/08/18 18:59 06:59 18:59 Intake Total 2500 / 2500 1000 / 1000 Balance 2500 / 2500 1000 / 1000 Weight 63.2 kg Intake: IV 1000 / 1000 NS Inj 1,000 ML @ 100 mls/hr IV 1000 / 1000 .CONT .Q10H [facility] Rx#:[id number] Oral 2500 / 2500 Other: # Voids 5 4 Date of Last Bowel Movement 01/07/18 01/07/18 01/08/18 # Bowel Movements 1 2 # Incontinent Bowel Movements 1 Narrative: GENERAL: male who appears older than stated age in no acute distress. SKIN: Warm and dry. HEAD: Atraumatic. Normocephalic. EYES: Pupils equal and round. No scleral icterus. No injection or drainage. ENT: No nasal bleeding or discharge. Mucous membranes pink and moist. NECK: Trachea midline. CARDIOVASCULAR: Regular rate and rhythm. RESPIRATORY: No accessory muscle use. Clear to auscultation. Breath sounds equal bilaterally. GASTROINTESTINAL: Abdomen soft, non-tender, nondistended. + Bowel sounds MUSCULOSKELETAL: Extremities without clubbing, cyanosis, or edema. No obvious deformities. NEUROLOGICAL: Awake, alert, oriented to self and place. No obvious cranial nerve deficits. Motor grossly within normal limits. RUE 5/5, LUE 4/5, bilateral lower extremities 5/5. Mild expressive aphagia, speech is clear, no facial droop. PSYCHIATRIC: poor insight and judgment. Results - Labs CBC & Chem 7: 01/05/18 03:25 01/08/18 01:00 Laboratory Results - last 24 hr 01/08/18 01:00 Sodium 142 Potassium 3.8 Chloride 106 Carbon Dioxide 29.1 Anion Gap 7 BUN 18 Creatinine 0.80 Estimated GFR 83 L Random Glucose 80 Calcium 8.6 Magnesium 1.9 Troponin I Less than 0.02 L - Imaging Impressions Head CT 01/08/18 00:00 CONCLUSION: 1. No focal or acute intracranial hemorrhage. 2. Stable CT scan of the brain compared to the prior study. Specifically, no change in the bilateral cortical atrophy, chronic white matter changes and bilateral lacunar infarcts. . Neck CTA 01/08/18 00:00 CONCLUSION: 1. 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 2. In the proximal portion of the right common carotid artery at the base of the neck there appears to be a focal noncalcified eccentric plaque versus thrombus measuring 1.2 cm in length causing some focal high-grade stenosis. 3. Moderate calcified plaquing along the proximal segment of the left internal carotid artery causing some mild narrowing of approximately 30%. 4. The right vertebral artery appears to be occluded. 5. The left vertebral artery is patent with a focal calcified plaque at its origin causing some mild to moderate stenosis. Assessment and Plan - Plan 67-year-old white male with a previous history of hypertension and CVA brought in by EMS due to altered mental status Acute encephalopathy of unknown etiology TIA versus subacute CVA with associated expressive aphasia -CT head shows no acute findings with remote lacunar infarcts in the basal ganglia and right marian. - Unable to do MRI, as it is unknown if patient has compatible PPM, MRI safe data bases checked with provided name and and is was not found. -Neurology following, appreciate assistance. Possible onset of dementia, stated on low dose Namenda. Unable to do MRI for further evaluation. -2D echo with EF 50-55%, trace to mild MVR, aortic valve sclerosis. - Carotid US with no flow in right internal carotid artery appearing occluded. The left with mild stenosis <50% and moderate arthrosclerosis. - Neck CTA with noted completely occlusion of right internal carotid artery. In the proximal portion of right common carotid artery at the base of the neck appears to be focal noncalcified eccentric plaque versus thrombus measuring 1.2 cm in length causing some focal high-grade stenosis. Left internal carotid artery mild narrowing of approximately 30%. Right vertebral artery appears occluded. Left vertebral artery mild to moderate stenosis. - Consult vascular surgery for further recommendations given symptoms and occlusion, appreciate assistance. - Continue aspirin, statin, BP control - Speech therapy consult for expressive aphasia - PT OT following, unsteady gait 7 days per week PT to help with gait - Hemoglobin A1c 5.0 - Ammonia level and urine tox screen were within normal limits -Continue neurochecks every 4 Hypertension, chronic essential +orthostatic BP's -Continues to be orthostatic with drop today by 20 mmHg in systolic reading. DC Norvasc, treat sitting BP's only. Nonsustained V.tach Episode overnight -Electrolytes stable, troponin negative, no further events -Continue to monitor electrolytes DVT prophylaxisLovenox Discussed Condition With: Patient and cryptologist Planning: PT 7 days a week, still needs to be properly identified.
[2018-01-08] MEDS: Enoxaparin Inj 40 MG/0.4 ML Syringe SQ SCH (12:23)
[2018-01-09] MEDS: Sod Chloride 0.9% Inj 1,000 ML IV.CONT SCH ×3 (03:15→23:25)
--- NOTE | 2018-01-09 08:05 | P.PNNEU ---
Subjective Active Medications: Active Medications Acetaminophen (Tylenol) 650 mg PO Q4H PRN PRN Reason: Temp > 100.4 Al Hydroxide/Mg Hydroxide (Milk Of Magnesia Liq) 30 ml PO Q12H PRN PRN Reason: Mild Constipation Amlodipine Besylate (Norvasc) 2.5 mg PO DAILY [facility] Last Admin: 01/08/18 09:02 Dose: 2.5 mg Aspirin (Aspirin Chew) 81 mg PO DAILY [facility] Last Admin: 01/08/18 09:02 Dose: 81 mg Atorvastatin Calcium (Lipitor) 10 mg PO HS [facility] Last Admin: 01/08/18 21:06 Dose: 10 mg Bisacodyl (Dulcolax Supp) 10 mg RECTAL DAILY PRN PRN Reason: SEVERE CONSITIPATION Dextrose (D50w Vial) 50 ml IV.PUSH UNSCH PRN PRN Reason: PER HYPOGLYCEMIA PROTOCOL Enalaprilat (Vasotec Inj) 1.25 mg IV.PUSH Q4H PRN PRN Reason: For SBP > 220 or DBP > 120 Enoxaparin Sodium (Lovenox Inj) 40 mg SQ Q24H [facility] Last Admin: 01/08/18 12:23 Dose: 40 mg Glucagon (Glucagon Inj) 1 mg OTHER UNSCH PRN PRN Reason: for Hypoglycemia Protocol Sodium Chloride (Ns Inj) 1,000 mls @ 100 mls/hr IV.CONT .Q10H [facility] Last Admin: 01/09/18 03:15 Dose: 100 mls/hr Lactulose (Lactulose Liq) 30 ml PO DAILY PRN PRN Reason: SEVERE CONSITIPATION Memantine (Namenda) 5 mg PO DAILY [facility] Last Admin: 01/08/18 09:02 Dose: 5 mg Miscellaneous (Pill Splitter) 1 each OTHER UNSCH PRN PRN Reason: PILL SPLITTING Ondansetron HCl (Zofran Inj) 4 mg IV.PUSH Q6H PRN PRN Reason: NAUSEA OR VOMITING Senna/Docusate Sodium (Helen-Colace) 1 tab PO BID [facility] Last Admin: 01/08/18 21:06 Dose: Not Given Sennosides (Senokot) 17.2 mg PO Q12H PRN PRN Reason: Moderate Constipation Sodium Chloride (Ns Flush) 2 ml IV.FLUSH BID [facility] Last Admin: 01/08/18 21:07 Dose: 2 ml Sodium Chloride (Ns Flush) 2 ml IV.FLUSH PRN PRN PRN Reason: FLUSH AFTER USING IV ACCESS Allergies/Adverse Reactions: Allergies Allergy/AdvReac Type Severity Reaction Status Date / Time No Known Allergies Allergy Verified 01/05/18 05:46 Physical Exam Vital signs: Vital Signs 01/08/18 12:00 01/08/18 16:00 01/08/18 16:02 Temperature 98.5 F 98.3 F Pulse Rate 74 69 78 Respiratory Rate 18 18 Blood Pressure 153/84 H 134/68 Pulse Oximetry 97 96 01/08/18 19:55 01/08/18 20:00 01/08/18 23:00 Temperature 98.1 F 97.9 F Pulse Rate 73 77 77 Respiratory Rate 18 18 Blood Pressure 128/71 131/67 Pulse Oximetry 96 98 01/09/18 00:00 01/09/18 03:54 01/09/18 04:00 Temperature 97.9 F Pulse Rate 76 68 62 Respiratory Rate 18 Blood Pressure 118/61 Pulse Oximetry 98 Intake & Output 01/08/18 01/09/18 01/09/18 18:59 06:59 18:59 Intake Total 400 / 400 1360 / 1360 Output Total 400 / 400 Balance 400 / 400 960 / 960 Weight 51.5 kg Intake: IV 1000 / 1000 NS Inj 1,000 ML @ 100 mls/hr IV 1000 / 1000 .CONT .Q10H [facility] Rx#:[id number] Oral 400 / 400 360 / 360 Output: Urine 400 / 400 Other: # Voids 2 Date of Last Bowel Movement 01/08/18 01/08/18 # Bowel Movements 0 Narrative: awake alert [place] not yr Review/Management - Review/Management Plan: imp likely old r ica occlusion asa fu echo tele labs he was orthostatic last pm to 85/ standing and follow his standing bp overweekend may need to be rx med team i will fu tuesday if still here 01/09/18 soome VT on monitor check holter eeg and echo nl labs ldl nl on asa r carotid occ and old r cva and small r pontine cva old fu holter fu standinbg bps
[2018-01-09] MEDS: amLODIPine 5 MG Tablet PO SCH (09:19)
[2018-01-09] MEDS: Senna/Docusate Sodium 8.6/50 MG Tablet PO SCH ×2 (09:20→21:40)
--- NOTE | 2018-01-09 09:34 | P.PNIM ---
Subjective Interval history: Follow up altered mental status, carotid artery occlusion, nonsustained V-tach Patient is requesting double portions on his meals. He states he ate all of his breakfast but continues to feel hungry. He denies chest pain, shortness of breath, dizziness or feeling lightheaded. When asked about the current year patient states he does not know as he does not like to keep uup with these things. No further episodes of nonsustained V-tach overnight. Physical Exam Vital signs: Last Vital Signs Temp 98.1 F 01/09/18 08:00 Pulse 69 01/09/18 08:00 Resp 18 01/09/18 08:00 BP 120/62 01/09/18 08:00 Pulse Ox 97 01/09/18 08:00 Intake & Output 01/07/18 01/08/18 01/09/18 01/10/18 06:59 06:59 06:59 06:59 Intake Total 3500 / 3500 1760 / 1760 Output Total 400 / 400 Balance 3500 / 3500 1360 / 1360 Weight 63.7 kg 63.2 kg 51.5 kg Narrative: GENERAL: thin, male in no acute distress SKIN: Warm and dry HEAD: Normocephalic, atraumatic EYES: No scleral icterus. No injection or drainage. NECK: Supple, trachea midline. No JVD or lymphadenopathy. CARDIOVASCULAR: Regular rate and rhythm without murmurs, gallops, or rubs. RESPIRATORY: Breath sounds equal bilaterally. No accessory muscle use. GASTROINTESTINAL: Abdomen soft, non-tender, nondistended. MUSCULOSKELETAL: No cyanosis, or edema. Moves all extremities. NEURO: tearful at times when stating he is feeling hungry Results Labs CBC & Chem 7: 01/05/18 03:25 01/08/18 01:00 Imaging Imaging: Impressions Head CT 01/08/18 00:00 CONCLUSION: 1. No focal or acute intracranial hemorrhage. 2. Stable CT scan of the brain compared to the prior study. Specifically, no change in the bilateral cortical atrophy, chronic white matter changes and bilateral lacunar infarcts. . Neck CTA 01/08/18 00:00 CONCLUSION: 1. 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 2. In the proximal portion of the right common carotid artery at the base of the neck there appears to be a focal noncalcified eccentric plaque versus thrombus measuring 1.2 cm in length causing some focal high-grade stenosis. 3. Moderate calcified plaquing along the proximal segment of the left internal carotid artery causing some mild narrowing of approximately 30%. 4. The right vertebral artery appears to be occluded. 5. The left vertebral artery is patent with a focal calcified plaque at its origin causing some mild to moderate stenosis. Assessment and Plan Plan 67-year-old white male with a previous history of hypertension and CVA brought in by EMS due to altered mental status Acute encephalopathy of unknown etiology - evaluated 01/09/18 TIA versus subacute CVA with associated expressive aphasia -CT head shows no acute findings with remote lacunar infarcts in the basal ganglia and right marian. -Unable to do MRI, as it is unknown if patient has compatible PPM, MRI safe data bases checked with provided name and and is was not found. -Neurology following, appreciate assistance. Possible onset of dementia, stated on low dose Namenda. Unable to do MRI for further evaluation. -2D echo with EF 50-55%, trace to mild MVR, aortic valve sclerosis. -Continue aspirin, statin, BP control -Speech therapy consult for expressive aphasia -PT/OT following, unsteady gait 7 days per week PT to help with gait -Hemoglobin A1c 5.0 -Ammonia level and urine tox screen were within normal limits -Continue neurochecks every 4 Complete occlusion of the right internal carotid artery as evidence on CT angio of neck - evaluated 01/09/18 -Vascular Surgery consulted, appreciate their input -Carotid US with no flow in right internal carotid artery appearing occluded. The left with mild stenosis <50% and moderate arthrosclerosis. -CTA neck with noted completely occlusion of right internal carotid artery. In the proximal portion of right common carotid artery at the base of the neck appears to be focal noncalcified eccentric plaque versus thrombus measuring 1.2 cm in length causing some focal high-grade stenosis. Left internal carotid artery mild narrowing of approximately 30%. Right vertebral artery appears occluded. Left vertebral artery mild to moderate stenosis. -continue ASA, statin, B/P control Hypertension, chronic essential - evaluated 01/09/18, stable -(+) orthostatic BP's -continue to monitor -DC'd Norvasc, treat sitting BP's only. Nonsustained V.tach - evaluated 01/09/18, no further episodes overnight -Electrolytes stable, troponin negative, no further events -Continue to monitor electrolytes MDM: self Code: Full GI ppx: PO intake DVT ppx: Lovenox subcu Discussed Condition With: patient, RN, supervising MD Discharge Planning: PT rec continued treatment 7 days a week. CM consulted for assistance with discharge planning. Progress Note: Quality VTE Deep Vein Thrombosis/Pulmonary Embolism Present on Admission: No
[2018-01-09] MEDS: Enoxaparin Inj 40 MG/0.4 ML Syringe SQ SCH (12:48)
[2018-01-10] MEDS: Senna/Docusate Sodium 8.6/50 MG Tablet PO SCH ×2 (09:32→20:22)
[2018-01-10] MEDS: amLODIPine 5 MG Tablet PO SCH (09:33)
[2018-01-10] MEDS: Sod Chloride 0.9% Inj 1,000 ML IV.CONT SCH ×2 (09:37→20:20)
[2018-01-10] MEDS: Enoxaparin Inj 40 MG/0.4 ML Syringe SQ SCH (13:00)
--- NOTE | 2018-01-10 17:50 | P.PNIM ---
Subjective Interval history: patient has no complaints. No acute interval events overnight. Physical Exam Vital signs: Last Vital Signs Temp 98.5 F 01/10/18 16:00 Pulse 68 01/10/18 16:00 Resp 16 01/10/18 16:00 BP 134/69 01/10/18 16:00 Pulse Ox 99 01/10/18 16:00 Intake & Output 01/08/18 01/09/18 01/10/18 01/11/18 06:59 06:59 06:59 06:59 Intake Total 3500 / 3500 1760 / 1760 2440 / 2440 1000 / 1000 Output Total 400 / 400 401 / 401 Balance 3500 / 3500 1360 / 1360 2039 / 2039 1000 / 1000 Weight 63.2 kg 51.5 kg 72.1 kg Narrative: GENERAL: thin, male in no acute distress HEENT:not pale,anicteric NECK: No JVD or lymphadenopathy. CARDIOVASCULAR: Regular rate and rhythm without murmurs, gallops, or rubs. RESPIRATORY: Breath sounds equal bilaterally. No accessory muscle use. GASTROINTESTINAL: Abdomen soft, non-tender, nondistended. MUSCULOSKELETAL: No cyanosis, or edema. Moves all extremities. NEURO: awake,alert, oriented to self,and place(knows he is in [place]),and situation- knows he is in the hospital and why he was brought in, not oriented to time- does not know month/year, says he does not keep up with it. SKIN: Warm and dry Results Labs CBC & Chem 7: 01/05/18 03:25 01/08/18 01:00 Assessment and Plan Plan 67-year-old white male with a previous history of hypertension and CVA brought in by EMS due to altered mental status. Acute encephalopathy of unknown etiology - TIA versus subacute CVA with associated expressive aphasia -CT head shows no acute findings with remote lacunar infarcts in the basal ganglia and right marian. -Unable to do MRI, as it is unknown if patient has compatible PPM, MRI safe data bases checked with provided name and and is was not found. -Ammonia level and urine tox screen were within normal limits -2D echo with EF 50-55%, trace to mild MVR, aortic valve sclerosis. -Hemoglobin A1c 5.0 -Neurology following, appreciate assistance. Possible onset of dementia, started on low dose Namenda. Unable to do MRI for further evaluation. -Continue neurochecks every 4 -Speech therapy consulted for expressive aphasia--appreciate recs. -PT/OT recommend rehab. -Continue aspirin, statin, BP control Complete occlusion of the right internal carotid artery as evidence on CT angio of neck - -Vascular Surgery consulted, appreciate their input -Carotid US with no flow in right internal carotid artery appearing occluded. The left with mild stenosis <50% and moderate arthrosclerosis. -CTA neck with noted completely occlusion of right internal carotid artery. In the proximal portion of right common carotid artery at the base of the neck appears to be focal noncalcified eccentric plaque versus thrombus measuring 1.2 cm in length causing some focal high-grade stenosis. Left internal carotid artery mild narrowing of approximately 30%. Right vertebral artery appears occluded. Left vertebral artery mild to moderate stenosis. -continue ASA, statin, B/P control Hypertension, chronic essential - BP within normal limits. Norvasc was discontinued this admission due to orthostatic hypotension. Nonsustained V.tach - no further episodes overnight -Electrolytes stable, troponin negative, no further events -Continue to monitor electrolytes MDM: self Code: Full GI ppx: PO intake DVT ppx: Lovenox subcut Dispo--will need rehab placement for PT/OT on discharge. Progress Note: Quality VTE Deep Vein Thrombosis/Pulmonary Embolism Present on Admission: No
[2018-01-11] MEDS: Sod Chloride 0.9% Inj 1,000 ML IV.CONT SCH ×2 (06:56→16:36)
[2018-01-11] MEDS: amLODIPine 5 MG Tablet PO SCH (08:14)
[2018-01-11] MEDS: Senna/Docusate Sodium 8.6/50 MG Tablet PO SCH ×2 (08:16→21:40)
--- NOTE | 2018-01-11 09:49 | P.PNNEU ---
Subjective Active Medications: Active Medications Acetaminophen (Tylenol) 650 mg PO Q4H PRN PRN Reason: Temp > 100.4 Al Hydroxide/Mg Hydroxide (Milk Of Magnesia Liq) 30 ml PO Q12H PRN PRN Reason: Mild Constipation Amlodipine Besylate (Norvasc) 2.5 mg PO DAILY [facility] Last Admin: 01/11/18 08:14 Dose: 2.5 mg Aspirin (Aspirin Chew) 81 mg PO DAILY [facility] Last Admin: 01/11/18 08:14 Dose: 81 mg Atorvastatin Calcium (Lipitor) 10 mg PO HS [facility] Last Admin: 01/10/18 20:21 Dose: 10 mg Bisacodyl (Dulcolax Supp) 10 mg RECTAL DAILY PRN PRN Reason: SEVERE CONSITIPATION Dextrose (D50w Vial) 50 ml IV.PUSH UNSCH PRN PRN Reason: PER HYPOGLYCEMIA PROTOCOL Enalaprilat (Vasotec Inj) 1.25 mg IV.PUSH Q4H PRN PRN Reason: For SBP > 220 or DBP > 120 Enoxaparin Sodium (Lovenox Inj) 40 mg SQ Q24H [facility] Last Admin: 01/10/18 13:00 Dose: Not Given Glucagon (Glucagon Inj) 1 mg OTHER UNSCH PRN PRN Reason: for Hypoglycemia Protocol Sodium Chloride (Ns Inj) 1,000 mls @ 100 mls/hr IV.CONT .Q10H [facility] Last Admin: 01/11/18 06:56 Dose: 100 mls/hr Lactulose (Lactulose Liq) 30 ml PO DAILY PRN PRN Reason: SEVERE CONSITIPATION Memantine (Namenda) 5 mg PO DAILY [facility] Last Admin: 01/11/18 08:14 Dose: 5 mg Miscellaneous (Pill Splitter) 1 each OTHER UNSCH PRN PRN Reason: PILL SPLITTING Ondansetron HCl (Zofran Inj) 4 mg IV.PUSH Q6H PRN PRN Reason: NAUSEA OR VOMITING Senna/Docusate Sodium (Helen-Colace) 1 tab PO BID [facility] Last Admin: 01/11/18 08:16 Dose: Not Given Sennosides (Senokot) 17.2 mg PO Q12H PRN PRN Reason: Moderate Constipation Sodium Chloride (Ns Flush) 2 ml IV.FLUSH BID [facility] Last Admin: 01/11/18 08:16 Dose: 2 ml Sodium Chloride (Ns Flush) 2 ml IV.FLUSH PRN PRN PRN Reason: FLUSH AFTER USING IV ACCESS Allergies/Adverse Reactions: Allergies Allergy/AdvReac Type Severity Reaction Status Date / Time No Known Allergies Allergy Verified 01/05/18 05:46 Physical Exam Vital signs: Vital Signs 01/10/18 12:00 01/10/18 13:21 01/10/18 16:00 Temperature 97.8 F 98.5 F Pulse Rate 69 66 69 Respiratory Rate 16 16 Blood Pressure 139/83 134/69 Pulse Oximetry 99 99 01/10/18 20:00 01/11/18 00:00 01/11/18 04:00 Temperature 97.4 F L 98.3 F 97.9 F Pulse Rate 85 75 86 Respiratory Rate 14 14 16 Blood Pressure 119/59 L 128/64 135/68 Pulse Oximetry 95 98 97 01/11/18 08:00 Temperature 97.8 F Pulse Rate 64 Respiratory Rate 18 Blood Pressure 187/79 H Pulse Oximetry 96 Intake & Output 01/10/18 01/11/18 01/11/18 18:59 06:59 18:59 Intake Total 1120 / 1120 2240 / 2240 Output Total 850 / 850 1050 / 1050 Balance 270 / 270 1190 / 1190 Weight 53 kg Intake: IV 1000 / 1000 1999 NS Inj 1,000 ML @ 100 mls/hr IV 1000 / 1000 1999 .CONT .Q10H [facility] Rx#:[id number] Oral 120 / 120 240 / 240 Output: Urine 850 / 850 1050 / 1050 Other: Date of Last Bowel Movement 01/09/18 01/10/18 # Bowel Movements 1 Narrative: awake not yr knows month nl speech Review/Management - Review/Management Plan: imp likely old r ica occlusion asa fu echo tele labs he was orthostatic last pm to 85/ standing and follow his standing bp overweekend may need to be rx med team i will fu tuesday if still here 01/09/18 soome VT on monitor check holter eeg and echo nl labs ldl nl on asa r carotid occ and old r cva and small r pontine cva old fu holter fu standinbg bps 01/11/18 holter pend no bp standing done i dw nursing stable o/w sr on tele
[2018-01-11] MEDS: Enoxaparin Inj 40 MG/0.4 ML Syringe SQ SCH (12:03)
--- NOTE | 2018-01-11 13:19 | P.PNIM ---
Physical Exam Vital signs: Last Vital Signs Temp 97.8 F 01/11/18 08:00 Pulse 64 01/11/18 08:00 Resp 18 01/11/18 08:00 BP 187/79 H 01/11/18 08:00 Pulse Ox 96 01/11/18 08:00 Intake & Output 01/09/18 01/10/18 01/11/18 01/12/18 06:59 06:59 06:59 06:59 Intake Total 1760 / 1760 2440 / 2440 3360 / 3360 Output Total 400 / 400 401 / 401 1900 / 1900 Balance 1360 / 1360 2038 / 2038 1460 / 1460 Weight 51.5 kg 53.1 kg 53 kg Narrative: GENERAL: well-nourished, well-developed patient, in no apparent distress. HEENT:not pale,anicteric CARDIOVASCULAR: Regular rate and rhythm without murmurs, gallops, or rubs. RESPIRATORY: Clear to auscultation. Breath sounds equal bilaterally. No wheezes , rales, or rhonchi. GASTROINTESTINAL: Abdomen soft, non-tender, nondistended. Normal active bowel sounds MUSCULOSKELETAL: Extremities without clubbing, cyanosis, or edema. NEURO: Alert & Oriented x2 to person, place. Moves all ext x4 Results Labs CBC & Chem 7: 01/05/18 03:25 01/08/18 01:00 Assessment and Plan Plan 67-year-old white male with a previous history of hypertension and CVA brought in by EMS due to altered mental status. Acute encephalopathy of unknown etiology - TIA versus subacute CVA with associated expressive aphasia -CT head shows no acute findings with remote lacunar infarcts in the basal ganglia and right marian. -Unable to do MRI, as it is unknown if patient has compatible PPM, MRI safe data bases checked with provided name and and is was not found. -Ammonia level and urine tox screen were within normal limits -2D echo with EF 50-55%, trace to mild MVR, aortic valve sclerosis. -Hemoglobin A1c 5.0 -Neurology following, appreciate assistance. Possible onset of dementia, started on low dose Namenda. Unable to do MRI for further evaluation. -Continue neurochecks every 4 -Speech therapy consulted for expressive aphasia--appreciate recs. -PT/OT recommend rehab. -Continue aspirin, statin, BP control Complete occlusion of the right internal carotid artery as evidence on CT angio of neck - -Vascular Surgery consulted, appreciate their input -Carotid US with no flow in right internal carotid artery appearing occluded. The left with mild stenosis <50% and moderate arthrosclerosis. -CTA neck with noted completely occlusion of right internal carotid artery. In the proximal portion of right common carotid artery at the base of the neck appears to be focal noncalcified eccentric plaque versus thrombus measuring 1.2 cm in length causing some focal high-grade stenosis. Left internal carotid artery mild narrowing of approximately 30%. Right vertebral artery appears occluded. Left vertebral artery mild to moderate stenosis. -continue ASA, statin, B/P control- Hypertension, chronic essential - BP within normal limits. Norvasc was discontinued this admission due to orthostatic hypotension. Resumed at low dose of 2.5mg, will monitor. Nonsustained V.tach - no further episodes overnight -Electrolytes stable, troponin negative, no further events -Continue to monitor electrolytes MDM: self Code: Full GI ppx: PO intake DVT ppx: Lovenox subcut Dispo--will need rehab placement for PT/OT on discharge. Progress Note: Quality VTE Deep Vein Thrombosis/Pulmonary Embolism Present on Admission: No
--- NOTE | 2018-01-11 17:21 | HM ---
Date Performed: 01/09/2018 Time Performed: 08:41:00 HOOKUP DATE: 01/09/18 08:41:00 AM Mon ANALYSIS START TIME: 01/09/2018 8:46:00 AM ANALYSIS END TIME: 01/10/2018 8:50:00 AM PATIENT AGE: 89 PATIENT HEIGHT PATIENT WEIGHT DRUG LIST PATIENT DIAGNOSIS: ams TEST NARRATIVE: The patient's average heart rate was 73 BPM. Heart rates greater than 120 B PM were noted < 1% of the time. No episodes of bradycardia were noted. No pauses exceeding 2.0 s econds were noted. 57 ventricular ectopics, which represented < 1% of the total beat count, were noted. The highest ventricular ectopic frequency occurred from 12:00 AM to 01:00 AM Tue. During thi s time 27 VE(s) occurred. Ventricular ectopics were observed as 57 isolated beat(s) only. No couple ts or runs were noted. Some of the ventricular beats occurred in bigeminal cycles. 60 supraventr icular ectopics, which represented < 1% of the total beat count, were noted. The highest supraventri cular ectopic frequency occurred from 12:00 AM to 01:00 AM Tue. During this time 18 SVE(s) occurred. Multiple episodes of ST depression (defined as -1.0 mm or more) were noted in channel 1. The m aximum depression of -4.2 mm occurred at 07:26:19 PM Mon. Multiple episodes of ST depression (define d as -1.0 mm or more) were noted in channel 2. The maximum depression of -3.3 mm occurred at 09:35: 57 PM Mon. Multiple episodes of ST depression (defined as -1.0 mm or more) were noted in channel 3. The maximum depression of -3.4 mm occurred at 12:33:12 AM Tue. TEST INTERPRETATION: Sinus rhythm PVCs PACs Signed by : Vazquez watson
--- NOTE | 2018-01-11 20:06 | MB ---
cc: Hans Castillo MD DATE: 01/11/2018 REASON FOR CONSULTATION: Right-sided carotid artery stenosis, peripheral vascular disease. HISTORY OF PRESENT ILLNESS: This is a 67-year-old male who was brought in with altered mental status, nobody knew who he was at that time. He was incoherent and mumbling and apparently was in [place] in some sort of a half-way and moved to [place]. He had a history of stroke, high blood pressure and nothing else was known. The patient underwent a workup and was found to have on a neck CTA, occlusion of the right internal carotid artery and patent left carotid, question arises about any further care. PAST MEDICAL HISTORY: Unknown, but includes a CVA, at some point hypertension. The patient also had some sort of abdominal surgery and I am not sure what it was, it might have been some sort of vascular or abdominal operation, but there is a midline scar there. SOCIAL HISTORY: The patient smokes cigarettes, does not drink. PHYSICAL EXAMINATION: GENERAL: Reveals a 67-year-old male. HEENT: Normocephalic. No trauma to head. Pupils equal, reactive. Extraocular muscles intact. NECK: Carotid pulses are weak bilateral and to be honest, without knowing that the right internal carotid artery is occluded, I could not tell the difference because common carotid arteries are present bilaterally. CHEST: Bilateral breath sounds, very decreased breath sounds bilaterally. The patient has advanced chronic obstructive pulmonary disease. HEART: Regular rate and rhythm. Pulmonary cachexia and general cachexia are quite noticeable. ABDOMEN: Soft. No rebound, no guarding, no masses. There is a midline scar from some sort of a surgery. EXTREMITIES: The patient has weak palpable femoral pulses, although he is fairly thin and I do not feel any distal pulses. He has a dopplerable popliteal and posterior tibial and dorsalis pedis bilateral, but not palpable. Decreased capillary refill in both legs. BACK: Somewhat scoliotic but otherwise normal. NEUROLOGIC: The patient is grossly intact, although he is a very poor historian. RECOMMENDATIONS: The patient has a right internal carotid artery occlusion and there is nothing that can be done about that; a left 30% stenosis is essentially normal carotid. At this point nothing to add to that care. The patient has clinically peripheral vascular disease, but no acute vascular deficit and this does not need addressing further at this time. Thank you very much for this referral. MD MADY Conner/julia , 06:16 PM , 06:25 PM
[2018-01-12] MEDS: Sod Chloride 0.9% Inj 1,000 ML IV.CONT SCH ×3 (06:23→12:54)
[2018-01-12] MEDS: Senna/Docusate Sodium 8.6/50 MG Tablet PO SCH (08:24)
[2018-01-12] MEDS: amLODIPine 5 MG Tablet PO SCH (08:24)
--- NOTE | 2018-01-12 08:41 | P.DS ---
DS: Providers Date of admission: 01/05/18 04:30 Primary care physician: No Primary Care Physician Consults: 01/05/18 12:24 Consult to Neurology Routine Consulting Provider: Ricky Jackson Reason for Consultation: AMS, TIA vs subacute CVA Notified:: Office Spoke with:: Teresa Date Notified:: 01/05/18 Time Notified:: 12:34 Ordering Provider: SEA Consult to Rehab Medicine Routine Consulting Provider: Humza Gomez Reason for Consultation: Stroke patient, assist with Rehab recommendations Notified:: Service Spoke with:: TISH Date Notified:: 01/05/18 Time Notified:: 12:33 Ordering Provider: SEA 01/06/18 15:01 Consult to Vascular Surgery Routine Consulting Provider: Hans Castillo Preferred Technical Laboratory Asst:: Hans Castillo Reason for Consultation: 67 y.o. with Hx stroke with onset of AMS and expressive aphasia, ? TIA. Carotid ultrasound with completely occluded right internal carotid artery, left with moderate arthrosclerosis, mild stenosis less than 50%. Please evaluate for further recommendations, greatly appreciate assistance. Notified:: Physician Spoke with:: Date Notified:: 01/06/18 Time Notified:: 15:25 Ordering Provider: LYNN Brief History from admission: This is a 67-year-old white male who was initially brought in by EMS due to altered mental status and found in a small apartment with several other adults and register under a Joesph Carr. Apparently from the emergency room physicians dictation, the friends were worried about his changes in mental status. While he was in the emergency room apparently no history could be gathered from him and he was mumbling incoherent words. This morning, patient is more awake and alert and displays some expressive aphasia which he tells me has worsened over the past 4 weeks. He tells me that he usually ambulates with a walker and has no complaints of new headache, visual changes, nor any focalized weakness or numbness. He states that his brother in [place] wanted him to be placed in a retirement in which he refused and therefore moved down to [place] to live with his friends. He states that his confusion has been getting worse for the past 4 weeks as well with memory problems to the point where he is not taking any of his medications. The only past medical history he can remember is high blood pressure and previous history of stroke. He does not recall why he had a pacemaker done. At this time, he cannot tell me his brother's phone number or address. He is unable to tell me his current home address where he staying with his friends. He was able to tell the nurse this morning his name is Stevei Byrd with a birthdate of 1950. He is not able to tell me what medications he supposed to be taking. He reports he is allergic to previous medication but cannot remember the name of them. DS: Summary 67-year-old white male with a previous history of hypertension and CVA brought in by EMS due to altered mental status. Acute encephalopathy of unknown etiology - There was concern for TIA versus subacute CVA with associated expressive aphasia.CT head showed no acute findings with remote lacunar infarcts in the basal ganglia and right marian.CT angio of neck showed complete occlusion of the right internal carotid artery. We were unable to do MRI, as it is unknown if patient has compatible PPM, MRI safe data bases checked with provided name and and is was not found.Ammonia level and urine tox screen were within normal limits.2D echo with EF 50-55%, trace to mild MVR, aortic valve sclerosis.Hemoglobin A1c 5.0. TSH and Vitamin B12 were normal. Patient was started on Aspirin, statin and his Amlodipine was continued for BP control. Neurology was consulted opined that was possible onset of early dementia, started on low dose Namenda. Vascular surgery consulted for CT angio neck findings opined that there was no indication for surgical intervention. Patient had a single episode of non sustained VT during this hospital stay, was asymptomatic, no further episodes were noted. troponin and electrolytes were negative, ECHO was unremarkable as noted above. He can pursue a holter monitor in the outpatient setting. At presented patient is oriented to person and place and situation, but not to time. Speech therapy consulted for expressive aphasia and worked with the patient throughout his hospital stay. PT/OT consult recommend rehab placement. Time Spent with Patient Total time spent providing and/or coordinating discharge services: Quality: VTE Deep Vein Thrombosis/Pulmonary Embolism Present on Admission: No Exam Narrative Exam Narrative: GENERAL: well-nourished, well-developed patient, in no apparent distress. HEENT:not pale,anicteric CARDIOVASCULAR: Regular rate and rhythm without murmurs, gallops, or rubs. RESPIRATORY: Clear to auscultation. Breath sounds equal bilaterally. No wheezes , rales, or rhonchi. GASTROINTESTINAL: Abdomen soft, non-tender, nondistended. Normal active bowel sounds MUSCULOSKELETAL: Extremities without clubbing, cyanosis, or edema. NEURO: Alert & Oriented x2 to person, place,situation but not to time. Moves all ext x4 Results Labs on day of discharge: Labs from last 24 hours 01/12/18 01/06/18 07:48 05:26 POC Glucose 90 Methylmalonic Acid 0.26 Impressions ITS Impressions Carotid Doppler Study 01/05/18 00:00 CONCLUSION: 1. Right Internal Carotid Artery: No flow identified. The right internal carotid appears completely occluded. 2. Left Internal Carotid Artery: Moderate atherosclerotic plaquing. Exam would suggest mild stenosis (less than 50%) by NASCET criteria 3. No flow identified within the right vertebral. Chest X-Ray 01/05/18 02:28 CONCLUSION: Pacer leads in right atrium and right ventricle. No acute findings. Head CT 01/08/18 00:00 CONCLUSION: 1. No focal or acute intracranial hemorrhage. 2. Stable CT scan of the brain compared to the prior study. Specifically, no change in the bilateral cortical atrophy, chronic white matter changes and bilateral lacunar infarcts. . Neck CTA 01/08/18 00:00 CONCLUSION: 1. 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 2. In the proximal portion of the right common carotid artery at the base of the neck there appears to be a focal noncalcified eccentric plaque versus thrombus measuring 1.2 cm in length causing some focal high-grade stenosis. 3. Moderate calcified plaquing along the proximal segment of the left internal carotid artery causing some mild narrowing of approximately 30%. 4. The right vertebral artery appears to be occluded. 5. The left vertebral artery is patent with a focal calcified plaque at its origin causing some mild to moderate stenosis. Discharge Plan Discharge Disposition Patient Disposition: 62 Rehab Inpatient Discharge Condition Condition: Stable Discharge Order Discharge Orders: Discharge Order (Routine); Ordered 01/12/18 Ordered By: Too Tabor Neurology Clear for Discharge (Routine); Ordered 01/12/18 Ordered By: Too Tabor Discharge Details Anticipated Discharge Date: 01/12/18 Physicians Team ED Provider: Geovanna Awad Primary Care Provider: Primary Care Ivette Kevin Attending Provider: Too Tabor Other Providers: Ricky Jackson ; Humza Gomez ; Hans Castillo ; [facility],Agency Rxs /Orders / Referrals /Forms Prescriptions: New atorvastatin [Lipitor] 10 mg Tablet 10 mg PO HS Qty: 30 RF: 0 amlodipine [Norvasc] 5 mg Tablet 5 mg PO DAILY Qty: 30 RF: 0 aspirin 81 mg Tablet,Chewable 81 mg PO DAILY Qty: 30 RF: 0 memantine [Namenda] 5 mg Tablet 5 mg PO DAILY Qty: 30 RF: 0 No Action Unable to Obtain Home Meds RF: 0 Referrals: [facility] [Outside] - See Instructions Ricky Jackson MD [Physician] - See Instructions Primary Care Ivette Kevin [Primary Care Provider] - See Instructions Status ED Status: Left Department
[2018-01-12] MEDS: Enoxaparin Inj 40 MG/0.4 ML Syringe SQ SCH (11:45)
[2018-01-12 13:30] VITALS: BP 119/64; PULSE 69; RESP 16; TEMP 97.9; O2SAT 98
== END 2018-01-12 17:35 ==
LOC: NEPE 02:17 → NEDA 04:30 → EDBD 04:30 → N06 06:22 → N04 01-09 22:25
PROVIDERS: ADMIT Hospitalist; ATTEND Hospitalist